=== PATIENT | male | born 1965 | race Caucasian/White ===

== ENCOUNTER 2023-01-15 11:57 | Outpatient (CLI) | payer OTHER, SELFPAY | END 2023-01-15 11:58 | disposition home or self-care (01) | PROVIDERS: Visit Provider Nurse Practitioner Family | DX: R30.0 Dysuria (principal) | CPT/HCPCS: 87086 ==

== ENCOUNTER 2023-03-07 12:20 | Emergency (ER) | payer OTHER, SELFPAY ==
[2023-03-07] VITALS (15 sets, daily range): BP systolic 112–154; BP diastolic 75–103; PULSE 61–74; RESP 12–20; TEMP 36.4; O2SAT 92–98; BMI 25.1
--- NOTE | 2023-03-07 | XR_ITS ---
Patient: MARISA ANGELES Facility:?[facility] Patient ID:?[id number] Site Patient ID:?[id number]. :?[id number] Study:?XRay-Chest PORTABLE-03/07/2023 1:17:48 PM Ordering Physician:KENNETH Final Report: INDICATION: Chest pain. TECHNIQUE: Chest 1 views. COMPARISON: None. FINDINGS: Cardiovasculature and mediastinum: Heart size and vasculature are normal in caliber and appearance. Lungs and pleural spaces: Lungs are clear. No sign of infiltrate or mass. No sign of pleural effusion. No pneumothorax. Bones and soft tissues: No significant findings. IMPRESSION: No acute or significant findings. Dictated by Obey Haas MD @ 03/07/2023 3:09:38 PM Signed by:?Obey Haas MD @03/07/2023 3:09:38 PM (Electronic Signature)
[2023-03-07] MEDS: ASPIRIN 81 MG TAB.CHEW 324 MG PO (12:44)
[2023-03-07] MEDS: NITROGLYCERIN 0.4 MG TAB.SUBL SUBLINGUAL (12:48)
[2023-03-07] MEDS: 0.9 % SODIUM CHLORIDE 500 ML 500 ML IV (12:48)
[2023-03-07] MEDS: TICAGRELOR 90 MG TABLET 180 MG PO (13:25)
[2023-03-07] MEDS: HEPARIN 5,000 UNIT/0.5 ML INJ 4000 UNIT IVP (13:34)
[2023-03-07] MEDS: HEPARIN 25,000 UNIT/500 ML BAG 19 UNIT IV (13:34)
[2023-03-07] MEDS: NITROGLYCERIN/DEXTROSE 25,000 MCG/250 ML BOTTLE 3 MCG IVPB (13:35)
[2023-03-07 13:44] LABS: D Dimer Quantitative* 0.33 ug/ml (0.00-0.50); INR 1.08 (0.91-1.10); Partial Thromboplastin Time* 33 Seconds (23-33); Prothrombin Time 14.6 Seconds
[2023-03-07 13:49] LABS: Alanine Aminotransferase* 20 U/L (4-50); Albumin* 4.3 g/dL (3.3-5.0); Anion Gap 8 mEq/L (7-15); Aspartate Amino Transferase* 29 U/L (12-35); Bilirubin Direct* 0.1 mg/dL (0.0-0.5); Bilirubin Total* 1.1 mg/dL (0.1-1.5); Blood Urea Nitrogen* 14 mg/dL (7-30); Calcium* 9.9 mg/dL (8.4-10.6); Carbon Dioxide* 28 mmol/L (20-32); Chloride* 101 mmol/L (96-114); Creatinine* 1.1 mg/dL (0.5-1.5); Estimated Glomerular Filt Rate 79 ml/min; Glucose* 108 mg/dL (60-115); Potassium* 4.2 mmol/L (3.6-5.1); Sodium* 137 mmol/L (135-149); Total Protein* 7.3 g/dL (6.0-8.3)
[2023-03-07 13:50] LABS: Alkaline Phosphatase* 44 U/L (40-150); Hemoglobin* 16.4 gm/dL (13.5-17.5); NT Pro B Type NatriureticPept* 30 pg/mL; Red Blood Count 5.49 m/uL (4.30-5.90); White Blood Count* 6.06 K/uL (4.50-11.00)
[2023-03-07 13:51] LABS: Eosinophils Percent Auto 0.8 % (0.0-7.0); Hematocrit 49.3 % (37.0-53.0); Immature Granulocytes Pct Auto 0.2 %; Lymphocytes Percent Auto 18.2 % (20-44); Mean Corpuscular HGB Conc 33 gm/dL (32-36); Mean Corpuscular Hemoglobin 30 pg (26-34); Mean Corpuscular Volume 90 fL (80-100); Monocytes Percent Auto 11.1 % (0.0-11.0); Neutrophils Percent Auto 68.7 % (42.0-72.0); Platelet Count* 228 K/uL (140-440); RDW Coefficient of Variation % 12.8 % (11.5-15.5); Slide Review Reflex No
--- NOTE | 2023-03-07 14:00 | ED.NURSE ---
Patient was transferred to [facility] via helicopter. Report was given to CHAVA Navarro with the helicopter. Also report given to Mehnaz on [facility]. Phone, shirt, shoes sent with patient. , Maegan, will meet patient there. Patient will go to CV lab on arrival to [facility]. Heparin gtt at 950u/kg/hr, nitro gtt at 5mcg/min. Loading dose of heparin 4000units given. ASA 324 and SL nitro given on arrival. [address]. Pain went from a 4/10 down to a 2/10 when handing off to aircraft crew. Patient was alert and oriented. Vital signs within normal limits. Last ate at 1030.
--- NOTE | 2023-03-07 14:19 | ED_ITS ---
HPI - General Adult General Date Seen: 03/07/23 Chief complaint: Chest Pain Stated complaint: chest pain Time Seen by Provider: 03/07/23 14:14 Source: patient Mode of arrival: ambulatory Limitations: no limitations History of Present Illness HPI narrative: Patient is a 57-year-old male who presents for evaluation of chest pain. He was hurrying to get in front of a train around 9:00 a.m. this morning and developed some central chest pain with radiation into his right arm and eventually into his jaw bilaterally. It eventually dissipated but then returned again while at rest. He says many many years ago he had pain that felt similar and was diagnosed as heartburn. This was probably 20 years ago. He says when it was it's worst it was bad enough that he can wanted to put his head down on the table, it is feeling little bit better now but not gone. He feels a little lightheaded, denies nausea vomiting, shortness of breath, fainting. He denies any history of exertional chest pain. He denies any medical history, does take testosterone. His dad had of quad bypass at age 55 approximately. He went on to live to age 88 but did have further cardiac complications. Patient does not smoke. Does not drink. Here today with his . Related Data Home Medications Medication Instructions Recorded Confirmed testosterone cypionate 200 mg/mL mg IM 01/15/23 01/15/23 intramuscular oil Allergies Allergy/AdvReac Type Severity Reaction Status Date / Time No Known Drug Allergies Allergy Verified 01/15/23 11:42 Review of Systems Status of ROS: Reports: 10 or more systems reviewed and unremarkable except as noted in History and below [facility] Medical History Dysuria ?R30.0 - Dysuria (ICD-10) Social History Smoking Status: Never smoker Do you use any of these nicotine containing products: None Second hand tobacco smoke exposure: No How often do you have a drink containing alcohol: monthly or less How many standard drinks containing alcohol do you have on a typical day: 1 or 2 AUDIT-C Alcohol total score: 1 Non-prescribed substance use: denies use service: No Exam Narrative: Exam Narrative: Vital signs as noted above. In general, an alert, well-appearing patient. Breathing easily. Head: Normocephalic, atraumatic. Eyes: Pupils are equal reactive. Extraocular movements are full. Conjunctivae are normal. ENT: Mucous membranes are moist. Neck: Supple without lymphadenopathy. Heart: Regular rate and rhythm. No murmur or rub. Lungs: Clear bilaterally. No increased work of breathing, crackles or wheezes. Abdomen: Soft and nontender. No organomegaly. Extremities: Well perfused. No edema. No calf tenderness. Pulses intact. Neurologic: Patient is alert and oriented to person and place. Speech is fluent. Face is symmetric. Moves all extremities equally. Affect: Normal. Skin: Warm and dry. Well perfused. Const: Vital Signs, click to edit/add: Vital Signs - 24 hr 03/07/23 12:28 03/07/23 12:30 03/07/23 12:30 Temperature 97.5 F L Pulse Rate [Pulse Oximeter] 68 Respiratory Rate 14 Blood Pressure [Ri ght Upper Arm] 154/103 H 154/103 H Pulse Oximetry 97 98 Oxygen Delivery Pr thod Room Air 03/07/23 12:49 03/07/23 12:55 03/07/23 13:00 Temperature Pulse Rate [Pulse Oximeter] 69 65 Respiratory Rate 12 20 Blood Pressure [Ri ght Upper Arm] 132/92 H 118/80 112/85 Pulse Oximetry 97 95 [facility] 03/07/23 13:05 03/07/23 13:10 03/07/23 13:15 Temperature Pulse Rate [Pulse Oximeter] 69 72 67 Respiratory Rate 12 14 18 Blood Pressure [Ri ght Upper Arm] 133/88 121/86 124/81 Pulse Oximetry 93 93 92 Oxygen Delivery Pr thod Room Air Room Air Room Air 03/07/23 13:20 03/07/23 13:25 03/07/23 13:30 Temperature Pulse Rate [Pulse Oximeter] 66 74 63 Respiratory Rate 12 12 12 Blood Pressure [Ri ght Upper Arm] 122/85 118/80 122/83 Pulse Oximetry 96 95 98 [facility] Room [facility] Room Air 03/07/23 13:35 03/07/23 13:40 03/07/23 13:45 Temperature Pulse Rate [Pulse Oximeter] 61 67 68 Respiratory Rate 12 16 12 Blood Pressure [Ri ght Upper Arm] 126/80 121/75 116/78 Pulse Oximetry 98 97 97 Oxygen Delivery Me thod Room Air Room Air Course Course Hospital Course: On arrival, patient was placed on monitor and oximetry. An initial EKG was done shortly after arrival and was given to me a few minutes later. His initial EKG showed a normal sinus rhythm with a ventricular rate of 66 beats per minute. The nurse believes this was done at 12:34 p.m.. The machine records that this was done at 11:24 a.m. but that is inaccurate. On initial EKG, there are no diagnostic ST elevations. There is about a mm of ST elevation in V5 and V6. There is 1-[address]-elevation in V4, and the T-waves in V4 5 and 6 are hyperacute. There may be some ST depression in lead 3 but there is also a fair amount of baseline waver so it is difficult to tell. Initially, I ordered aspi rin as well as sublingual nitro, and IV, and initial labs. I looked with the bedside ultrasound, he did appear to have hypokinesis of the anterior wall. A 2nd EKG was done about 20 minutes after the 1st EKG, and on this EKG there is ST elevation clearly seen in V2 as well as aVL, with inferior ST depression in leads 3 and F. At that time, I called a STEMI, ordered level 1 meds, including heparin bolus and drip, ticagrelor 180 mg, as well as morphine and nitroglycerin drip if needed for ongoing pain. I also had them give 500 mL of normal saline. I contacted [facility] . It did take a period of time to get hold of Cardiology, probably about 10 minutes altogether, and after getting approval from the global sales director I called for helicopter transport. Helicopter transport was delayed by I believe 25 minutes. Patient was stable while here. Blood pressure was initially 154/103, came down to 118/80 after nitroglycerin. His pain was significantly improved although not 100% gone at the time I last spoke with him. At that time he had not yet had morphine, but had had sublingual nitroglycerin. Initial troponin was 0.04. Other labs were pending at the time of his transfer. These returned fairly unremarkable. White blood cell count was 6, hemoglobin 16.4. Coags unremarkable. Metabolic panel, LFTs, BNP all normal. I did review his chest x-ray prior to giving heparin and his mediastinum was normal. Radiology has not read his chest x-ray. He was transported by air to [facility] without further complications. Critical care 30 minutes Vital Signs Vital signs: Initial Vital Signs Temperature 97.5 F L 03/07/23 12:28 Temperature Source Temporal Artery Scan 03/07/23 12:28 Pulse Rate 68 03/07/23 12:28 Pulse Rhythm Regular 03/07/23 12:28 Respiratory Rate 14 03/07/23 12:28 Blood Pressure 154/103 H 03/07/23 12:28 Blood Pressure Mean 120 H 03/07/23 12:28 Blood Pressure Position Sitting 03/07/23 12:28 Pulse Oximetry 97 03/07/23 12:28 Oxygen Delivery Method Room Air 03/07/23 12:28 Vital Signs Temperature 97.5 F L 03/07/23 12:28 Pulse Rate 68 03/07/23 12:28 Respiratory Rate 14 03/07/23 12:28 Blood Pressure 154/103 H 03/07/23 12:28 Pulse Oximetry 97 03/07/23 12:28 Oxygen Delivery Method Room Air 03/07/23 12:28 Temperature 97.5 F L 03/07/23 12:28 Pulse Rate 68 03/07/23 13:45 Respiratory Rate 12 03/07/23 13:45 Blood Pressure 116/78 03/07/23 13:45 Pulse Oximetry 97 03/07/23 13:45 Oxygen Delivery Method Room Air 03/07/23 13:45 Medical Decision Making Lab Data Labs: Lab Results 03/07/23 Range/Units 12:46 WBC 6.06 (4.50-11.00) K/uL RBC 5.49 (4.30-5.90) m/uL Hgb 16.4 (13.5-17.5) gm/dL Hct 49.3 (37.0-53.0) % MCV 90 (80-100) fL MCH 30 (26-34) pg MCHC 33 (32-36) gm/dL RDW Coeff of Rudy 12.8 (11.5-15.5) % Plt Count 228 (140-440) K/uL Neut % (Auto) 68.7 (42.0-72.0) % Lymph % (Auto) 18.2 L (20-44) % [place] % (Auto) 11.1 H (0.0-11.0) % Eos % (Auto) 0.8 (0.0-7.0) % Baso % (Auto) 1.0 (0.0-3.0) % Neut # (Auto) 4.20 (1.7-7.0) K/uL Lymph # (Auto) 1.10 (0.90-2.90) K/uL [place] # (Auto) 0.70 (0.00-0.90) K/UL Eos # (Auto) 0.00 (0.00-0.50) K/uL Baso # (Auto) 0.10 (0.00-0.30) K/uL Abs Immat Gran (auto) 0.00 (0.00-0.30) K/uL Imm/Tot Granulo (auto) 0.2 % INR 1.08 (0.91-1.10) APTT 33 (23-33) Seconds D-Dimer Quant (PE/DVT) 0.33 (0.00-0.50) ug/ml Sodium 137 (135-149) mmol/L Potassium 4.2 (3.6-5.1) mmol/L Chloride 101 (96-114) mmol/L Carbon Dioxide 28 (20-32) mmol/L Anion Gap 8 (7-15) mEq/L BUN 14 (7-30) mg/dL Creatinine 1.1 (0.5-1.5) mg/dL Estimated GFR 79 ml/min Glucose 108 (60-115) mg/dL Calcium 9.9 (8.4-10.6) mg/dL Total Bilirubin 1.1 (0.1-1.5) mg/dL Direct Bilirubin 0.1 (0.0-0.5) mg/dL AST 29 (12-35) U/L ALT 20 (4-50) U/L Alkaline Phosphatase 44 (40-150) U/L NT-Pro-B Natriuret Pep 30 pg/mL Total Protein 7.3 (6.0-8.3) g/dL Albumin 4.3 (3.3-5.0) g/dL Discharge Plan Discharge Prescriptions: No Action testosterone cypionate 200 mg/mL oil IM Follow Up/Referrals: Provider,Not a Local [Primary Care Provider] -
[2023-03-07 14:43] LABS: Troponin, Point-of-Care* 0.04 ng/ml (0.01-0.04)
== END 2023-03-07 14:15 | disposition short-term general hospital (02) ==
PROVIDERS: Emergency Provider Emergency Medicine
DX: I24.9 Acute ischemic heart disease, unspecified (principal)
CPT/HCPCS: 36415; 71045; 80048; 80076; 83880; 84484; 85025; 85379; 85610; 85730; 93005; 94761; 99285; 99291; A9270; J1644; J7120

== ENCOUNTER 2024-04-16 04:28 | Emergency (ER) | payer BC, SELFPAY ==
[2024-04-16 04:32] VITALS: BP 137/87; PULSE 66; RESP 16; TEMP 36.7; O2SAT 99; BMI 25.1
[2024-04-16 04:36] VITALS: O2SAT 99
--- NOTE | 2024-04-16 04:36 | CRLHL7_ITS ---
For Patients: As a result of the Century Cures Act, medical imaging exams and procedure reports are released immediately into your electronic medical record. You may view this report before your referring provider. If you have questions, please contact your health care provider. INDICATION: Chest pain COMPARISON: 03/07/2023 TECHNIQUE: PA and lateral 2 view chest. FINDINGS: Lung volumes are good. No focal or diffuse opacities. No pulmonary edema. No pleural effusion. No pneumothorax. No pneumomediastinum. Heart size is normal. Mediastinal surgical clips and abandoned epicardial pacing leads. Bones: Sternotomy wires are in good position at the midline. No acute appearing bone finding. IMPRESSION: Postoperative chest. Lungs clear without any acute findings. Dictated by Karma Carlson MD @ 04/16/2024 6:04:10 AM (Electronically Signed)
[2024-04-16 04:49] LABS: Basophils Absolute Auto 0.06 K/uL (0.00-0.30); Basophils Percent Auto 1.1 % (0.0-3.0); Eosinophils Absolute Auto 0.28 K/uL (0.00-0.50); Eosinophils Percent Auto 5.1 % (0.0-7.0); Hematocrit 47.8 % (37.0-53.0); Hemoglobin* 14.9 gm/dL (13.5-17.5); Immature Granulocytes Abs Auto 0.01 K/uL (0.00-0.30); Immature Granulocytes Pct Auto 0.2 %; Lymphocytes Absolute Auto 1.41 K/uL (0.90-2.90); Lymphocytes Percent Auto 25.5 % (20-44); Mean Corpuscular HGB Conc 31 gm/dL (32-36); Mean Corpuscular Hemoglobin 26 pg (26-34); Mean Corpuscular Volume 83 fL (80-100); Monocytes Percent Auto 14.5 % (0.0-11.0); Neutrophils Absolute Auto 2.96 K/uL (1.7-7.0); Neutrophils Percent Auto 53.6 % (42.0-72.0); Platelet Count* 220 K/uL (140-440); RDW Coefficient of Variation % 19.8 % (11.5-15.5); Red Blood Count 5.78 m/uL (4.30-5.90); White Blood Count* 5.52 K/uL (4.50-11.00)
[2024-04-16 04:50] LABS: Slide Review Reflex No
[2024-04-16] MEDS: ASPIRIN 81 MG TAB.CHEW 324 MG PO (04:55)
--- NOTE | 2024-04-16 04:57 | ED_ITS ---
HPI - Chest Pain General Date Seen: 04/16/24 Chief Complaint: Chest Pain Stated Complaint: chest pain Time Seen by Provider: 04/16/24 04:35 Source: patient Mode of arrival: ambulatory Limitations: no limitations History of Present Illness HPI narrative: Patient is a 58-year-old gentleman who presents here with left-sided chest discomfort with some radiation to his back, this is current on off for the past probably week to 10 days, and when he really exerts himself he noticed this the this occurs. He also says that when he stops exerting himself the discomfort goes away for the most part. He is not sure if this is more an anxiety he is noting, as last year he had what he describes as a heart attack and a triple bypass done at [facility]. Since then he has been fine he says. With no problems at all. Denies any significant shortness of breath leg swelling, he has been taking is aspirin faithfully, has never taken any nitroglycerin or any other medications is also on a statin, No history of hypertension, no history of diabetes, nonsmoker, the previous history of triple bypass at [facility]. complaint: chest discomfort Pertinent past history: coronary artery disease and CABG Onset (ago): week(s) Timing of current episode: episodic Prior episodes: Yes Onset: during exertion Pain location: substernal and left chest Pain radiation: right scapula Severity: moderate Quality: tightness, heaviness and similar to prior MD Relieving factors: rest Exacerbating factors: exertion Treatment prior to arrival: none Risk Factors Coronary artery disease risk factors: hyperlipidemia Thoracic aortic dissection risk factors: none Related Data Home Medications ?Medication ?Instructions ?Recorded ?Confirmed testosterone cypionate 200 mg/mL mg IM 01/15/23 01/15/23 intramuscular oil Previous Rx's ?Medication ?Instructions ?Recorded nitroglycerin 0.3 mg sublingual 0.3 mg sublingual Q5-15M PRN chest 04/16/24 tablet pain #20 tabs Allergies Allergy/AdvReac Type Severity Reaction Status Date / Time No Known Drug Allergies Allergy Verified 04/16/24 04:35 Review of Systems Status of ROS Reports: 10 or more systems reviewed and unremarkable except as noted in History and below [facility] Medical History Dysuria ?R30.0 - Dysuria (ICD-10) Social History Smoking Status: Never smoker Do you use any of these nicotine containing products: None Second hand tobacco smoke exposure: No How often do you have a drink containing alcohol: monthly or less How many standard drinks containing alcohol do you have on a typical day: 1 or 2 AUDIT-C Alcohol total score: 1 Non-prescribed substance use: denies use service: No Exam Narrative Exam Narrative: Patient is in room 3 he is in no apparent distress, speaking to me normally is currently chest pain-free. Pupils equal round reactive to light there is no scleral icterus redness is TMs are normal his oropharynx is normal, chest is clear bilaterally no wheezing crackles noted easy respirations heart sounds are normal no clicks murmurs or gallops scar from previous sternal surgeries noted well-healed, abdomen is soft there is no guarding no organomegaly bowel sounds are normal, normal pulses in his lower extremities no edema, moves all extremities independently and well. Skin reveals no rashes or petechiae neurologically intact in his upper lower extremities with cranial nerves 3-12 normal. Const Vital Signs, click to edit/add: Vital Signs - 24 hr 04/16/24 04:32 04/16/24 04:36 04/16/24 06:19 Temperature 98.0 F Pulse Rate [Right Pulse Oximeter] 66 53 L Respiratory Rate 16 16 Blood Pressure [Right Upper Arm] 137/87 113/78 Pulse Oximetry 99 99 99 Oxygen Delivery Method Room Air Room Air 04/16/24 08:12 Temperature Pulse Rate [Right Pulse Oximeter] 56 L Respiratory Rate 18 Blood Pressure [Right Upper Arm] 110/78 Pulse Oximetry 99 Oxygen Delivery Method Room Air Documenting provider has reviewed patient's vital signs: yes Course Reevaluation(s) Time of Reevaluation #1: 08:15 Reevaluation #1: Patient continues to be pain-free, EKG is repeated with absolutely no change from 2 previous EKGs, and his troponin now x3 is 0.01. This gives him a delta of 0. At this point will follow the guidelines that were laid out to us by cardiology at [facility] I will set him up for exercise Myoview for tomorrow. In the interim I have given her prescription for nitroglycerin, he will continue to take his aspirin. He was comfortable with this plan. Consultations Consultation #1: [facility], paged at 6:10 a.m. I spoke to cardiology at 6:40 a.m. he suggested a 3rd troponin, done 2 hours from then and repeating the EKG if these are also negative, then he would suggest an outpatient exercise Myoview, courses of the 3rd troponin is positive patient will need to be transferred. I then spoke to the patient, and he is in agreement. He continues to be pain-free at this point. Vital Signs Vital signs: Initial Vital Signs Temperature 98.0 F 04/16/24 04:32 Temperature Source Temporal Artery Scan 04/16/24 04:32 Pulse Rate 66 04/16/24 04:32 Pulse Rhythm Regular 04/16/24 04:32 Pulse Strength 3+ Normal 04/16/24 04:32 Respiratory Rate 16 04/16/24 04:32 Blood Pressure 137/87 04/16/24 04:32 Blood Pressure Mean 103 04/16/24 04:32 Blood Pressure Position Sitting 04/16/24 04:32 Pulse Oximetry 99 04/16/24 04:32 Oxygen Delivery Method Room Air 04/16/24 04:32 Vital Signs Temperature 98.0 F 04/16/24 04:32 Pulse Rate 66 04/16/24 04:32 Respiratory Rate 16 04/16/24 04:32 Blood Pressure 137/87 04/16/24 04:32 Pulse Oximetry 99 04/16/24 04:32 Oxygen Delivery Method Room Air 04/16/24 04:32 Temperature 98.0 F 04/16/24 04:32 Pulse Rate 56 L 04/16/24 08:12 Respiratory Rate 18 04/16/24 08:12 Blood Pressure 110/78 04/16/24 08:12 Pulse Oximetry 99 04/16/24 08:12 Oxygen Delivery Method Room Air 04/16/24 08:12 Medications Administered Medications: Discontinued Medications Generic Name Dose Route Start Last Admin Trade Name Freq PRN Reason Stop Dose Admin Aspirin 324 mg 04/16/24 04:50 04/16/24 04:55 Aspirin 81 Mg Tab.Chew PO 04/16/24 04:51 324 mg ONCE ONE Administration MDM - Chest Pain MDM Narrative Medical decision making narrative: During the evaluation of this patient I considered multiple differential diagnosis is. The life-threatening differential diagnosis include coronary disease/MD, pulmonary embolism, pneumothorax, pneumonia, and aortic dissection. Other differential diagnosis included but were not limited to pericarditis, myocarditis, chest wall pain, GERD, esophageal rupture, rib fracture contusion, pleurisy, as well as other etiologies. Medical Records Data Attestation: I reviewed the patient's medical records. Lab Data Attestation: I reviewed the patient's lab results. Labs: Lab Results 04/16/24 04/16/24 04/16/24 Range/Units 04:37 04:42 06:00 WBC 5.52 (4.50-11.00) K/uL RBC 5.78 (4.30-5.90) m/uL Hgb 14.9 (13.5-17.5) gm/dL Hct 47.8 (37.0-53.0) % MCV 83 (80-100) fL MCH 26 (26-34) pg MCHC 31 L (32-36) gm/dL RDW Coeff of Rudy 19.8 H (11.5-15.5) % Plt Count 220 (140-440) K/uL Neut % (Auto) 53.6 (42.0-72.0) % Lymph % (Auto) 25.5 (20-44) % [place] % (Auto) 14.5 H (0.0-11.0) % Eos % (Auto) 5.1 (0.0-7.0) % Baso % (Auto) 1.1 (0.0-3.0) % Neut # (Auto) 2.96 (1.7-7.0) K/uL Lymph # (Auto) 1.41 (0.90-2.90) K/uL [place] # (Auto) 0.80 (0.00-0.90) K/UL Eos # (Auto) 0.28 (0.00-0.50) K/uL Baso # (Auto) 0.06 (0.00-0.30) K/uL Abs Immat Gran (auto) 0.01 (0.00-0.30) K/uL Imm/Tot Granulo (auto) 0.2 % INR 1.06 (0.91-1.10) APTT 31 (23-33) Seconds D-Dimer Quant (PE/DVT) 0.13 (0.00-0.50) ug/ml Sodium 138 (135-149) mmol/L Potassium 4.0 (3.6-5.1) mmol/L Chloride 105 (96-114) mmol/L Carbon Dioxide 27 (20-32) mmol/L Anion Gap 6 L (7-15) mEq/L BUN 20 (7-30) mg/dL Creatinine 1.5 (0.5-1.5) mg/dL Estimated Creat Clear 54.99 Estimated GFR 54 ml/min Glucose 103 (60-115) mg/dL Calcium 8.7 (8.4-10.6) mg/dL NT-Pro-B Natriuret Pep 81 pg/mL POC Troponin I 0.01 0.01 (0.01-0.04) ng/ml Imaging Data Chest x-ray: Attestation: I have reviewed the pertinent imaging results. My impression: Negative chest with sternotomy wires Radiologist's impression: [place] [address] Diagnostic Imaging Report Patient: Jeovany Akhtar MR#: [id number] : 1965 Acct:[id number] Loc: ED Service Date: 04/16/[address]: Ordering Physician: Eulogio Ceron M.D. Date of Service: 04/16/24 Procedure(s): XR chest 2V Accession Number(s): [id number] cc: Eulogio Ceron M.D.; Dillon Romano M.D.~ For Patients: As a result of the Cures Act, medical imaging exams and procedure reports are released immediately into your electronic medical record. You may view this report before your referring provider. If you have questions, please contact your health care provider. INDICATION: Chest pain COMPARISON: 03/07/2023 TECHNIQUE: PA and lateral 2 view chest. FINDINGS: Lung volumes are good. No focal or diffuse opacities. No pulmonary edema. No pleural effusion. No pneumothorax. No pneumomediastinum. Heart size is normal. Mediastinal surgical clips and abandoned epicardial pacing leads. Bones: Sternotomy wires are in good position at the midline. No acute appearing bone finding. IMPRESSION: Postoperative chest. Lungs clear without any acute findings. Dictated by Karma Carlson MD @ 04/16/2024 6:04:10 AM (Electronically Signed) ECG Data Attestation: I personally reviewed and interpreted this ECG as follows: ECG interpretation date: 04/16/24 Prior ECG tracings: available for review Interpretation: EKG shows normal sinus rhythm, incomplete right bundle-branch block, no acute ST wave changes, normal indices. With a ventricular rate of 62. When compared to old EKG from 08/13/2007, hyperacute T-waves have resolved. 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 Continue with his aspirin, nitroglycerin if pain does not go way, call 911 and come back to the emergency room. No exercising, minimal activity. Will set him up for follow-up, with Cardiology, and primary care here. Activity Level: Light activity Prescriptions: New nitroglycerin 0.3 mg tablet, sublingual 0.3 mg sublingual Q5-15M PRN (Reason: chest pain) Qty: 20 1RF Rx Instructions: do not exceed 3 doses per episode No Action testosterone cypionate 200 mg/mL oil IM Follow Up/Referrals: Provider,Not a Local [Non-Staff] - 2 Days (Follow-up with Dr. Christiano Sutherland) Garcia Sutherland MD [Staff Physician] - Stand Alone Forms: [employer] Info Instructions
[2024-04-16 04:59] LABS: Troponin, Point-of-Care* 0.01 ng/ml (0.01-0.04)
[2024-04-16 05:03] LABS: Chloride* 105 mmol/L (96-114); Sodium* 138 mmol/L (135-149)
[2024-04-16 05:06] LABS: Anion Gap 6 mEq/L (7-15); Blood Urea Nitrogen* 20 mg/dL (7-30); Carbon Dioxide* 27 mmol/L (20-32); Creatinine* 1.5 mg/dL (0.5-1.5); Est. Creatinine Clearance* 54.99; Estimated Glomerular Filt Rate 54 ml/min; Glucose* 103 mg/dL (60-115)
[2024-04-16 05:07] LABS: Calcium* 8.7 mg/dL (8.4-10.6)
[2024-04-16 05:13] LABS: D Dimer Quantitative* 0.13 ug/ml (0.00-0.50)
[2024-04-16 05:14] LABS: INR 1.06 (0.91-1.10); Partial Thromboplastin Time* 31 Seconds (23-33); Prothrombin Time 14.5 Seconds
[2024-04-16 05:17] LABS: NT Pro B Type NatriureticPept* 81 pg/mL
--- OUTSIDE RECORDS SUMMARY | 2024-04-16 05:54 | XMS_ITS | Data Portability ---
Author Organization [facility], [facility] Address [address] [place] [address] Care Team Providers Care Turnaround Engineer Name Role Phone VOTEL, JUDITH Primary Care Provider Assessment No assessment recorded. Plan of Treatment Reminders Order Date Submit Date Provider Last Modified By Organization Details Last Modified Time Details Appointments None recorded. Lab PSA, total, serum or plasma 2022 023 [facility], [address] [place], [address], 3 12:35:34 testosteron e, total, serum 2022 023 [facility] [address] [place], [address], 3 08:35:54 hemoglobin (Hb), blood 2022 023 [facility], [address] [place], [address], 3 19:37:10 hepatic function panel, serum 2022 023 [facility], [address] [place], [address], 3 09:20:19 Referral None recorded. Procedures None recorded. Surgeries None recorded. Imaging MRI, prostate, w/wo contrast - contact patient to schedule 2022 023 [facility] [place], [address] [place], [address], 3 12:10:07 Medication Orders testosteron e cypionate 200 mg/mL intramuscul ar oil 2022 023 [id number], [address] [place], [place], [id number], 14:53:26 Patient TargetsNo targets recorded. Patient InstructionsNo instructions recorded. Reason for Referral None Reported. Results Created Date Observation Date Name Description Value Unit Range Abnormal Flag Note LastModifiedBy Organization Detail LastModifiedTime 04/16/2004/15/2023 MRI, prost ate, w/wo contr ast No observ ation record ed. [facility] [employer] [address] [place], [address], 04/18/2023 14:24:50 Result Notes None recorded. Problems Name Problem SNOMED Code Status Onset Date Resolution Date Notes Provider Name and Address Organization Details Recorded Time Prostate specific antigen above reference range 202598002 Active 2022 Mike Mathews MD [address] [place] [address],[address] [place] [address], [phone], [facility] 3 11:19:38 Hypogonadism 46690742 Active 2022 Mike Mathews MD [address] [place] [address],[address] [place] [address], [phone], [facility] 3 11:19:50 Primary erectile dysfunction 013516994 Active 2022 Mike Mathews MD [address] [place] [address],[address] [place] [address], [phone], [facility] 3 13:23:40 Male hypogonadism 84481414 Active 2022 Mike Mathews MD [address] [place] [address],[address] [place] [address], [phone], [facility] 3 10:53:44 Problem Notes None recorded. Procedures Surgical History Date Name Laterality Status Provider Name and Address Organization Details Recorded Time Colonoscopy completed Alison Phan [facility] 08/12/2022 10:41:12 Appendectomy completed Alison Phan [facility] 08/12/2022 10:41:02 Imaging Results Imaging Date Name Status LastModified by Organiz ation Details LastModified Time 04/15/2023 MRI, prostate, w/wo contrast completed [facility] [place] [address], [place], [address], 04/18/2023 14:24:50 Procedure Notes None recorded. Medical Equipment None Reported. Allergies No known drug allergies Medications Name Sig Start Date Stop Date Status Note LastModified by Organization Details LastModified Time atorvastati n 40 mg tablet active Not Available Not Available Not Available BD Luer-Kevin Syringe 3 mL 20 gauge x 1 USE DIRECTED active Not Available Not Available No t Available clopidogrel 75 mg tablet active Not Available Not Available Not Available Hypodermic [place] 23 gauge x 1 USE DIRECTED active Not Available Not Available No t Available hydromorpho ne 2 mg tablet 04/07 completed Not Available Not Available Not Available metoprolol succinate ER 25 mg tablet,exte nded release 24 hr active Not Available Not Available Not Available testosteron e cypionate 200 mg/mL intramuscul ar oil INJECT 1 ML IN THE MUSCLE EVERY 10 DAYS 2023 active Not Available Not Available Not Avai lable colchicine 0.6 mg tablet active Not Available Not Available Not Available doxycycline hyclate 100 mg tablet 04/07 completed Not Available Not Available Not Available BD Luer-Kevin Syringe 3 mL 21 gauge x 1 USE DIRECTED active Not Available Not Available No t Available testosteron e cypionate 200 mg/mL intramuscul ar kit Inject 1 mL by intramusc ular route. 2022 active Not Available Not Available Not Avai lable Vitals Date Recorded Body height Body mass index (BMI) Body weight Provider Name and Address Organization Details Last Updated DateTime 08/12/2022 175.26 cm 25.8 kg/m2 10901.66 g Alison Phan [facility] 08/12/2022 10:40:08 Date Recorded Body height Body mass index (BMI) Body weight Provider Name and Address Organization Details Last Updated DateTime 04/07/2023 175.26 cm 23.6 kg/m2 44309.78 g Chas Laird [facility] 04/07/2023 14:18:33 Social History Question Answer Notes LastModified by Organizat ion Details LastModified Time Tobacco Smoking Status [facility] 10:40:56 What Is Your Level Of Alcohol Consumption? Moderate Information not available 04/07/2023 What Is Your Level Of Caffeine Consumption? Moderate Information not available 04/07/2023 When Did You Quit Smoking? 16+yearssincel astcigardennis casarez Information not available 08/12/2022 What Was The Date Of Your Most Recent Tobacco Screening? 08/12/2022 leida Information not available 08/12/2022 Sex: Male Functional Status None recorded. Mental Status None recorded. Family History Relationship Description Onset Age of this Age Resolved Age Notes LastModified by Organization Details LastModified Time Mother Family history of breast cancer leida Not available 2022 10:40:32 Father Family history of cardiac disorder leida Not available 2022 10:40:37 Father Alzheimer's disease leida Not available 2022 10:40:48 Medical History Condition Response Diabetes N Sexually Transmitted Infection N Other N Bleeding Disorder N High Blood Pressure N Kidney Stones N Cancer N Lung Disease N Depression N High Cholesterol N GERD/Acid Reflux N Heart Disease N Immunizations Vaccine Type Date Status Provider Name and Address Organization Details Recorded Time Influenza, MDCK, quadrivalent, PF 05/01/2022 completed Ann magallon [facility] 05/20/2023 10:36:53 zoster recombinant 01/22/2019 completed Ann magallon [facility] 05/20/2023 10:36:53 zoster recombinant 04/09/2019 job magallon [facility] 05/20/2023 10:36:53 COVID-19, mRNA, LNP-S, PF, 30 mcg/0.3 mL dose 07/31/2021 completed Ann magallon [facility] 05/20/2023 10:36:53 COVID-19, mRNA, LNP-S, PF, 30 mcg/0.3 mL dose 10/21/2020 [facility] 10:36:53 COVID-19, mRNA, LNP-S, PF, 30 mcg/0.3 mL dose 11/11/2020 [facility] 10:36:53 COVID-19, mRNA, LNP-S, bivalent, PF, 50 mcg/0.5 mL or 25mcg/0.25 mL dose 04/23/2022 [facility] 10:36:53 Tdap 11/24/2017 [facility] 10:36:53 Tdap 04/30/2021 [facility] 10:36:53 Influenza, split virus, trivalent, preservative 04/27/2012 [facility] 10:36:53 Influenza, split virus, trivalent, preservative 04/27/2013 [facility] 10:36:53 Influenza, split virus, trivalent, preservative 05/06/2010 [facility] 10:36:53 Influenza, split virus, trivalent, preservative 05/09/2008 [facility]23 10:36:53 Influenza, split virus, trivalent, preservative 05/25/2003 [facility] 10:36:53 Influenza, split virus, trivalent, preservative 05/28/2006 [facility]23 10:36:53 Influenza, split virus, trivalent, preservative 05/29/2005 completed Ann Almejere null, [facility] 05/20/2023 10:36:53 Influenza, split virus, trivalent, preservative 05/31/2007 completed Ann Almejere null, [facility] 05/20/2023 10:36:53 Influenza, split virus, trivalent, PF 04/30/2011 completed [facility]jere null, [facility] 05/[facility]/2023 10:36:53 Influenza, split virus, trivalent, PF 06/25/2009 completed Ann Almejere null, [facility] 05/20/2023 10:36:53 Hep A, adult 04/27/2012 completed Ann Almejere null, [facility] 05/20/2023 10:36:53 Hep A, adult 04/30/2011 completed Ann Almejere null, [facility] 05/20/2023 10:36:53 Influenza, split virus, quadrivalent, PF 04/08/2020 completed Ann Almejere null, [facility] 05/20/2023 10:36:53 Influenza, split virus, quadrivalent, PF 04/13/2014 completed Ann Almejere null, [facility] 05/20/2023 10:36:53 Influenza, split virus, quadrivalent, PF 04/18/2017 completed Ann Almejere null, [facility] 05/[facility]/2023 10:36:53 Influenza, split virus, quadrivalent, PF 04/25/2015 completed Ann Almejere null, [facility] 05/20/2023 10:36:53 Influenza, split virus, quadrivalent, PF 04/27/2019 completed Ann Almejere null, [facility] 05/[facility]/2023 10:36:53 Influenza, split virus, quadrivalent, PF 04/29/2016 completed Ann Almejere null, [facility] 05/20/2023 10:36:53 Influenza, split virus, quadrivalent, PF 04/30/2021 completed [facility]mejere null, [facility] 05/[facility]/2023 10:36:53 Influenza, split virus, quadrivalent, PF 05/06/2018 completed Ann JovanabreanaMIGUEL gama [facility] 05/20/2023 10:36:53 Past Encounters Encounter ID Performer Location Encounter Start Date Encounter Closed Date Diagnosis/Indication Diagnosis SNOMED-CT Code Diagnosis ICD10 Code [id number] Mike Mathews MD [facility] [address] [place] [address] 08/12/2022 10:31:27 08/16/2022 15:24:50 Prostate specific antigen above reference range 582311735 R97.20 Hypogonadism 89721261 E2 9.1 Primary er ectile dysfunction 207502799 N52.9 [id number] Mike Mathews MD [facility] [address] [place] [address] 04/07/2023 14:13:42 04/11/2023 18:35:51 Prostate specific antigen above reference range 426760282 R97.20 Male hypogonadism 187770 06 E29.1 Health Concerns Section Related Observation LastModified by Organization Detai ls LastModified Time None Recorded Concern Status LastModified by Organization Details LastModified Time None Recorded Advance Directives Directive None Recorded Payers Encounter Date Sequence Insurance Name Policy Number Policy Verde Covered Member ID Verde Member ID Guarantor Name 08/12/2022 1 [id number] Jeovany Akhtar 04/07/2023 1 [facility] Jeovany Akhtar [id number] Jeovany Akhtar 04/07/2023 2 [facility] Jeovany Akhtar [id number] Jeovany Akhtar Notes Date Note Type Note Provider Name and Address Organization Details Recorded Time 08/12/2022 text/html HPI Notes: New patient referred for history of hypogonadism, erectile dysfunction and elevated PSA. I reviewed the primary care notes from Dr. Romano dated 11/25/2021. The patient has been on long-term testosterone cypionate injections 200 mg every 10 days. This goes back to at least [address] he last saw Dr. Farah. There are no recent urology notes. I reviewed the [facility] records and he had an elevated hemoglobin of 18.0 on 11/25/2021 and his testosterone level was 1131. There is no recent liver panel in the [facility] system. His PSA was also elevated to 4.15 on 11/25/2021, up from 3.51 in 2020 and 2.66 in 2019. No family history of prostate cancer. He denies any urinary symptoms. He states that the testosterone has been very helpful with his vitality, mood, libido and sexual function. He also takes sildenafil 25 mg for ED with good results. Mike Mathews MD [address] [place] [address],[address], [place], [address], [facility] 08/12/2022 13:24:00 04/07/2023 text/html HPI Notes: 3: New patient referred for history of hypogonadism, erectile dysfunction and elevated PSA. I reviewed the primary care notes from Dr. Romano dated 11/25/2021. The patient has been on long-term testosterone cypionate injections 200 mg every 10 days. This goes back to at least 2009 [address] he last saw Dr. Farah. There are no recent urology notes. I reviewed the [facility] records and he had an elevated hemoglobin of 18.0 on 11/25/2021 and his testosterone level was 1131. There is no recent liver panel in the [facility] system. His PSA was also elevated to 4.15 on 11/25/2021, up from 3.51 in 2020 and 2.66 in 2019. No family history of prostate cancer. He denies any urinary symptoms. He states that the testosterone has been very helpful with his vitality, mood, libido and sexual function. He also takes sildenafil 25 mg for ED with good results. 04/07/23: He was referred back for elevated PSA of 4.45 on 03/17/2023. Remaining labs including total testosterone, LFTs and hemoglobin within normal range. He is currently injecting 100 mg of testosterone cypionate every 7 days. He underwent three-vessel coronary artery bypass about 1 month ago at [place] and is recovering. He tried Viagra 25 mg once and fainted and is stopped this. He is currently on aspirin and Plavix. Mike Mathews MD [address] [place] [address],[address], [place], [address], [facility] 04/07/2023 15:02:58
--- OUTSIDE RECORDS SUMMARY | 2024-04-16 05:55 | XMS_ITS | Clinical Summary ---
Author Organization [facility] Address [place], [place] [address] Care Team Providers Care Pullman Car Clerk Name Role Phone JavierteDillon carlson MD Primary Care Provider + Allergies No known active allergies Medications Medication Sig Dispensed Refills Start Date End Date Status sildenafil citrate (VIAGRA) 100 mg tabletIndications :Erectile dysfunction of organic origin Take 1 Tablet (100 mg) by mouth once daily if needed for Erectile Dysfunction. Take 30 to 60 minutes prior to sexual activity. Maximum 100 mg in 24 hours. 48 tablet. 5 2 Active B-D 3cc Luer-Kevin Syr 20Gx1 3 mL 20 gauge x 1 syrgIndications:L ow testosterone USE DIRECTED 100 Each 4 3 Active cholecalciferol (VITAMIN D3) 1,000 unit tablet Take 1,000 units by mouth once daily. Active Biotin 1 mg tablet Take 1 mg by mouth once daily. Active vitamin B complex (B COMPLETE ORAL) Take 1 Tablet by mouth once daily. Active L.acid/L.casei/B. bif/B.umberto/FOS (PROBIOTIC BLEND ORAL) Take 1 Capsule by mouth once daily. Active acetaminophen (TYLENOL EXTRA STRGTH) 500 mg tabletIndications :S/P CABG x 3 Take 2 Tablets (1,000 mg) by mouth four times daily. Max acetaminophen dose: 4000mg in 24 hrs. 0 3 Active aspirin (ECOTRIN) 81 mg enteric coated tabletIndications :S/P CABG x 3 Take 1 Tablet (81 mg) by mouth once daily with a meal. 0 3 Active Needle, Disp, 23 G 23 gauge x 1 ndleIndications:L ow testosterone As directed. 100 Each 4 3 Active Syringe with Needle, Disp, (Couplewise Luer Lock Syr-needle) 3 mL 21 gauge x 1 syrgIndications:L ow testosterone As directed. 100 Each 3 3 Active polyethylene glycol-electrolyt e (GOLYTELY) 236-22.74-6.74 -5.86 gram suspensionIndicat ions:Colon cancer screening Drink 2 liters (1/2) the day before colonoscopy and drink 2 liters (other 1/2) 6 hours before colonoscopy appointment. 4000 mL 3 Active atorvastatin (LIPITOR) 40 mg tabletIndications :S/P CABG x 3 Take 1 Tablet (40 mg) by mouth at bedtime. 90 Tablet 3 3 Active clopidogreL (PLAVIX) 75 mg tabletIndications :S/P CABG x 3 Take 1 Tablet (75 mg) by mouth every morning. 90 Tablet 3 3 Active testosterone cypionate (DEPO-TESTOSTERON E) 200 mg/mL injectionIndicati ons:Hypogonadism male INJECT 1 ML IN THE MUSCLE EVERY 10 DAYS 10 mL 4 Active metoprolol succinate (TOPROL XL) 25 mg Sustained-Release tabletIndications :S/P CABG x 3 TAKE 1 AND 1/2 TABLETS(37.5 MG) BY MOUTH DAILY 135 Tablet 4 Active metoprolol succinate (TOPROL XL) 25 mg Sustained-Release tabletIndications :S/P CABG x 3 Take 1.5 Tablets (37.5 mg) by mouth once daily. 135 Tablet 4 04/03/20 24 Discontinued Active Problems Problem Noted Date Diagnosed Date ST elevation myocardial infa rction involving left anterior descending (LAD) coronary artery 03/07/2023 S/P CABG x 3 03/07/2023 Overview (03/07/2023): SANTIAGO TO LAD, SVG TO DIAGONAL, SVG TO PDA ON 03/07/[address] ESPAÑA Adenomatous colon polyp 07/30/2019 Overview (06/21/2023): Colonoscopy 07/2019 polyps, repeat in 3 years Colonoscopy 06/2023 TA, repeat in 5 years Hypogonadism male 12/28/2016 Low testosterone 04/15/2011 Blood glucose elevated 12/01/2010 Encounters Date Type Department Care Team Description 04/01/2024 Refill [facility] [address] [place] [address] Dillon Romano MD Refill Request (Metoprolol Succinate) from Last 3 Months Immunizations Name Administration Dates Next Due AMB Influenza, IIV3 (Age >=3 years)(Flu Clinic Only) 04/27/2013,05/06/2010,05/09/2008 AMB Influenza, IIV4 PF (=>6 mos Flulaval,Fluzone Fluarix)(Flu Clinic Only) 04/27/2019,05/06/2018,04/18/2017,2015,04/13/2014 Hepatitis A (Adult) 04/27/2012,04/30/2011 Influenza A (H1N1), Inactiva yesenia (Age >=3 Years) 06/25/2009 Influenza, IIV3 (Age 6-35 mos) 04/30/2011,2008 Influenza, IIV3 (Age >=3 years) 04/27/20 13,04/27/2012,04/30/2011,2009,06/25/2009,05/09/2008,05/31/2007,1 07/28/2005,05/29/2005,05/25/2003 Influenza, IIV4 05/06/2023,,04/08/2020,2016,04/29/2016,04/25/2015,04/13/2014 Influenza,CCIIV4 PRESERV FREE 05/01/2022 Tdap 04/30/2021,11/24/2017,07/12/2008 Zoster (Shingrix-RZV, recombinant) 04/09/2019, Family History Medical History Relation Name Comments Good Health Brother Good Health Daughter ADOPTED Heart Disease Father [place] age 50, henry druple bypass 1988 Other Father elevated iron Good Health Mother Good Health Sister Good Health Son 1 Good Health Son 2 ADOPTED Relation Name Status Comments Brother Daughter Father Alive Mother Alive Sister Son 1 Son 2 Social History Tobacco Use Types Packs/Day Years Used Date Smoking Tobacco: Former Cigarettes 0.3 5 Smokeless Tobacco: Never Tobacco Cessation:Counseling Given: Yes Comments:smoked lightly for two years in college Alcohol Use Standard Drinks/Week Comments Yes 0 (1 standard drink = 0.6 oz pur e alcohol) 3 beers on weekend PHQ-2 Answer Date Recorded PHQ-2 TOTAL SCORE 0 06/28/2023 Social Connections Answer Date Recorded Frequency of Communication with Friends and Fami ly Not on file 02/09/2024 Financial Resource Strain Answer Date R ecorded Difficulty of Paying Living Expenses 3 01/18/2023 Difficulty of Paying Living Expenses Not on file 01/18/2023 Food Insecurity Answer Date Recorded Worried About Running Out of Food in the Last Ye ar 1 01/18/2023 Transportation Needs Answer Date Record ed Lack of Transportation (Medical) 1 01/18/2023 Housing Stability Answer Date Recorded Unable to Pay for Housing in the Last Year 1 01/18/2023 Sex and Gender Information Value Date Recorded Sex Assigned at Not on file Gender Identity Not on file Sexual Orientation Not on file Obstetrics History Last Filed Vital Signs Vital Sign Reading Time Taken Comments Blood Pressure 112/58 06/17/2023 9:53 AM WIPING RAG WASHER Pulse 70 06/17/2023 9:53 AM WIPING RAG WASHER Temperature 36.8 ??C (98.3 ??F) 03/17/2023 3:00 PM CD T Respiratory Rate 12 06/17/2023 9:53 AM WIPING RAG WASHER Oxygen Saturation 97% 06/17/2023 9:53 AM WIPING RAG WASHER Inhaled Oxygen Concentration - - Weight 81.3 kg (179 lb 3.2 oz) 05/19/2023 10:02 AM WIPING RAG WASHER Height 175.3 cm (5' 9) 05/19/2023 10:02 AM WIPING RAG WASHER Body Mass Index 26.46 05/19/2023 10:02 AM WIPING RAG WASHER Plan of Treatment Health Maintenance Due Date Last Done Comments HIV for age 15-65 11/16/1982 COVID-19 vaccine series ( season) 2024 04/23/2022, 07/31/2021, 11/11/2020, Additional history exists Influenza for age 50-64 03/11/2024 05/06/20 23, 05/01/2022, 04/30/2021, Additional history exists BMI (ht and wt on same day) for age 18+ 05/19/2024 05/19/2023, 03/17/2023, 01/18/2023, Additional history exists Depression screening for age 12+ 06/27/2024 06/27/2023, 04/04/2023, 03/31/2023, Additional history exists Lipids for age 45-75 05/16/2028 05/16/2023, 03/09/2023, 11/25/2021, Additional history exists Colonoscopy through age 75 06/17/202806/17, 06/17/2023, 06/17/2023, Additional history exists Tetanus booster 04/30/2031 04/30/2021, 11/08, 07/12/2008 Hepatitis C screening for age 18-79 Completed 11/24/2017 Zoster (shingles) series for age 50+ Completed 04/09/2019, 01/22/2019 Tdap Completed 04/30/2021, 11/08, 07/12/2008 Pneumococcal series for age 6-64 Aged Out No longer eligible based on patient's age to complete this topic Medical Devices Explanted Type Area Heading Maker Device Identifier Shelf Expiration Date Model / Serial / Lot Cnnla Arterial 22frx3/8in Optisite Blunt Tip - [id number] Explanted:Qty: 1 on 03/07/2023 [email or web address] [place] 02/13/2025 OPTI22 / / Description:THIS IS NOT AN I MPLANT Procedures Procedure Name Priority Date/Time Associated Diagnosis Comments COLONOSCOPY SCREENING Routine 06/17/2023 8:37 AM WIPING RAG WASHER History of colon polyps LIPID PANEL W REFLEX MEASURED LDL Routine 05/16/2023 7:[address] elevation myocardial infarction involving left anterior descending (LAD) coronary artery (HC) ANTI HCV Routine 11/24/2017 8:50 AM CDT Encounter for hepatitis C screening test for low risk patient from Last 3 Months or Most Recently Relevant to Health Maintenance Results * COLONOSCOPY (06/17/2023 9:09 AM WIPING RAG WASHER) 06/17/2023 9:09 AM WIPING RAG WASHER Narrative Transcriptions Lino Armijo MD - 06/17/2023 9:43 AM CST Patient Name: Jeovany Akhtar Procedure Date: 06/17/2023 Gender: Male Date of : 1965 Admit Type: Outpatient Procedure: Colonoscopy Proceduralist: Lino Armijo MD , Kelsey Murphy (Nurse), Mimi Watts (Nurse) Referring MD: Dillon Romano Indications/Pre-Op Diagnosis: High risk colon cancer surveillance:Personal history of multiple (3 or more) adenomas,Last colonoscopy: July 2019 Medications: Fentanyl 100 micrograms IV, Midazolam 4 mgIV, The level of sedation administered wasmoderate Procedure Description: The patient had risks, benefits and alternatives explained to andgave informed consent. The patient had a stable cardiopulmonary status and judged an adequate candidate for conscious sedation. The [id number] was passed through the anus and advanced to the cecum, identified by appendiceal orifice and ileocecal valve. Thecolonoscopy was performed without difficulty. The patient tolerated the procedure well. The quality of the bowel preparation was good. The ileocecal valve, appendiceal orifice, and rectum were photographed. Complications: No immediate complications. Estimated Blood Loss & Specimen: Estimated blood loss: none. Specimen collected - Yes and sent to Laboratory Findings: The perianal and digital rectal examinations were normal. A 3 mm polyp was found in the sigmoid colon. The polyp was sessile.The polyp was removed with a cold snare. Resection and retrieval were complete. The exam was otherwise without abnormality. Impressions/Post-Op Diagnosis: - One 3 mm polyp in the sigmoid colon, removed with a cold snare. Resected and retrieved. - The examination was otherwise normal. Recommendation: - Patient has a contact number available for emergencies. The signsand symptoms of potential delayed complications were discussed with the patient. Return to normal activities tomorrow. Written discharge instructions were provided to the patient. - Resume previous diet. - Continue present medications. - Await pathology results. - Repeat colonoscopy is recommended. The colonoscopy date will be determined after pathology results from today's exam become available for review. Moderate Sedation: A time out was performed before the procedure. Moderate (conscious) sedation was administered by the endoscopy nurse and supervised bythe endoscopist. The following parameters were monitored: oxygensaturation, heart rate, blood pressure, EKG, CO2, respiratory rate, adequacy of pulmonary ventilation and reponse to care. Please refer to the patient's medical record flowsheets and nursing notes for moderate sedation details. Total physician intraservice time was 21 minutes. Lino Armijo MD 06/17/2023 9:43:21 AM This report has been signed electronically. Note Initiated On: 06/17/2023 9:09 AM Procedure Code(s): --- Professional --- 56098, Colonoscopy, flexible; with removalof tumor(s), polyp(s), or other lesion(s) bysnare technique Diagnosis Code(s): --- Professional --- Z86.010, Personal history of colonicpolyps D12.5, Benign neoplasm of sigmoid colon CPT copyright 2021 [employer]. All rights reserved. The codes documented in this report are preliminary and upon club room attendant reviewmay be revised to meet current compliance requirements. Scope In: 9:17:37 AM Scope Withdrawal Time 0 hours 11 minutes 57 seconds Scope Out: 9:35:00 AM Lino Armijo MD PROCEDURE ORD * LIPID PANEL W REFLEX MEASURED LDL (05/16/2023 7:58 AM WIPING RAG WASHER) CHOLESTEROL,TOTAL 113 100 - 199 mg/dL 05/16/2023 1:27 PM WIPING RAG WASHER [facility] TRA [facility] Comment: Cholesterol, Total Reference Ranges Desirable <200 mg/dL Borderline 200-239 mg/dL High >=240 mg/dL TRIGLYCERIDES 54 <150 mg/dL 05/16/2023 1:27 PM WIPING RAG WASHER [facility] TRAL [facility] HDL CHOLESTEROL 44 >40 mg/dL 1:27 PM WIPING RAG WASHER [facility] TRAL [facility] NON-HDL CHOLESTEROL 69 <145 mg/dl 05/16/2023 1:27 PM WIPING RAG WASHER [facility] CHOL/HDL RATIO 2.57 <4.50 05/16/2023 1:27 PM WIPING RAG WASHER [facility] LDL CHOLESTEROL 58 <=130 mg/dL 05/16/2023 1:27 PM WIPING RAG WASHER [facility] VLDL CHOLESTEROL 11 <=30 mg/dL 05/16/2023 1:27 PM WIPING RAG WASHER [facility] TRAL [facility] PROVIDER ORDERED STATUS RANDOM 05/16/2023 1:27 PM [facility] Blood BLOOD SPECIMEN / Unknown Venipuncture / Unknown 05/16/2023 7:58 AM WIPING RAG WASHER 05/16/2023 7:59 AM WIPING RAG WASHER Dillon Romano MD CHEMISTRY [facility] [address] [place] [address], * ANTI HCV (11/24/2017 8:50 AM CDT) HEPATITIS C ANTIBODY Non-React frank Non-React frank 11/24/2017 5:26 PM CDT [facility] Comment:Antibodies to HCV no t detected; does not exclude the possibility of exposure to HCV. Blood BLOOD SPECIMEN / Unknown Venipuncture / Unknown 11/24/2017 8:50 AM CDT 11/24/2017 8:50 AM CDT Dillon Romano MD [facility] [address] [place] [address], from Last 3 Months or Most Recently Relevant to Health Maintenance Advance Directives * Full Code (Latest Code Status on File) Date Activated Date Inactivated Comments 03/10/2023 7:33 AM 03/12/2023 4:28 PM Question Answer Comments Code Status Discussion: Reviewed Preferences * Full Code Date Activated Date Inactivated Comments 03/07/2023 3:15 PM 03/10/2023 7:33 AM Question Answer Comments Code Status Discussion: Unable to Assess Preferences, Provider to review later Care Teams Pullman Car Clerk Relationship Specialty Start Date End Date Votel, Dillon Holcomb MD [address] [place] [address] PCP - General Family Practice 12/10/10
[2024-04-16 06:08] LABS: Troponin, Point-of-Care* 0.01 ng/ml (0.01-0.04)
[2024-04-16 06:19] VITALS: BP 113/78; PULSE 53; RESP 16; O2SAT 99
[2024-04-16 08:12] VITALS: BP 110/78; PULSE 56; RESP 18; O2SAT 99
[2024-04-16 08:16] LABS: Troponin, Point-of-Care* 0.01 ng/ml (0.01-0.04)
== END 2024-04-16 08:30 | disposition home or self-care (01) ==
PROVIDERS: Emergency Provider Family Medicine; PCP Family Medicine
DX: R07.9 Chest pain, unspecified (principal); I20.9 Angina pectoris, unspecified
CPT/HCPCS: 36415; 71046; 80048; 83880; 84484; 85025; 85379; 85610; 85730; 93005; 94761; 99284; 99285; A9270

== ENCOUNTER 2024-04-17 10:45 | Outpatient (CLI) | payer BC, SELFPAY ==
--- OUTSIDE RECORDS SUMMARY | 2024-04-17 11:40 | XMS_ITS | Data Portability ---
Author Organization [facility], [facility] Address [address] [place] [address] Care Team Providers Care Brick Grader Name Role Phone VOTEL, JUDITH Primary Care Provider Assessment No assessment recorded. Plan of Treatment Reminders Order Date Submit Date Provider Last Modified By Organization Details Last Modified Time Details Appointments None recorded. Lab PSA, total, serum or plasma 2022 023 [facility], [address] [place], [address], 3 12:35:34 testosteron e, total, serum 2022 023 [facility] [address] [place], [address], 3 08:35:54 hemoglobin (Hb), blood 2022 023 [facility], [address] [place], [address], 3 19:37:10 hepatic function panel, serum 2022 023 [facility], [address] [place], [address], 3 09:20:19 Referral None recorded. Procedures None recorded. Surgeries None recorded. Imaging MRI, prostate, w/wo contrast - contact patient to schedule 2022 023 [facility] [place], [address] [place], [address], 3 12:10:07 Medication Orders testosteron e cypionate 200 mg/mL intramuscul ar oil 2022 023 [id number], [address] [place], [id number], 14:53:26 Patient TargetsNo targets recorded. Patient InstructionsNo instructions recorded. Reason for Referral None Reported. Results Created Date Observation Date Name Description Value Unit Range Abnormal Flag Note LastModifiedBy Organization Detail LastModifiedTime 04/16/2004/15/2023 MRI, prost ate, w/wo contr ast No observ ation record ed. [facility] [place] [address] [place], [address], 04/18/2023 14:24:50 Result Notes None recorded. Problems Name Problem SNOMED Code Status Onset Date Resolution Date Notes Provider Name and Address Organization Details Recorded Time Prostate specific antigen above reference range 111817118 Active 2022 Mike Mathews MD [address] [place] [address],[address] [place] [address], [phone], [facility] 3 11:19:38 Hypogonadism 36017903 Active 2022 Mike Mathews MD [address] [place] [address],[address] [place] [address], [phone], [facility] 3 11:19:50 Primary erectile dysfunction 227504782 Active 2022 Mike Mathews MD [address] [place] [address],[address] [place] [address], [phone], [facility] 3 13:23:40 Male hypogonadism 40192942 Active 2022 Mike Mathews MD [address] [place] [address],[address] [place] [address], [phone], [facility] 3 10:53:44 Problem Notes None recorded. Procedures Surgical History Date Name Laterality Status Provider Name and Address Organization Details Recorded Time Colonoscopy completed Alison Phan [facility] 08/12/2022 10:41:12 Appendectomy completed Alison Phan [facility] 08/12/2022 10:41:02 Imaging Results Imaging Date Name Status LastModified by Organiz ation Details LastModified Time 04/15/2023 MRI, prostate, w/wo contrast completed [facility] [place] [address], [place], [address], 04/18/2023 14:24:50 Procedure Notes None recorded. Medical [...] Not Available Not Available Not Available Hypodermic [place] 23 gauge x 1 USE DIRECTED active [...] Updated DateTime 08/12/2022 175.26 cm 25.8 kg/m2 79693.66 g Alison Phan [facility] 08/12/2022 10:40:08 Date Recorded Body height Body mass index (BMI) Body weight Provider Name and Address Organization Details Last Updated DateTime 04/07/2023 175.26 cm 23.6 kg/m2 48931.78 g Chas Laird [facility] 04/07/2023 14:18:33 Social History Question Answer Notes LastModified by Organizat ion Details LastModified Time Tobacco Smoking Status [facility]/12/2022 10:40:56 What Is Your Level [...] High Blood Pressure N Kidney Stones N High Cholesterol N GERD/Acid Reflux N Heart Disease N Cancer N Lung Disease N Depression N Immunizations Vaccine Type Date Status Provider Name and Address Organization Details Recorded Time Influenza, MDCK, quadrivalent, PF 05/01/2022 completed Ann magallon [facility] 05/20/2023 10:36:53 zoster recombinant 01/22/2019 completed Ann magallon [facility] 05/20/2023 10:36:53 zoster recombinant 04/09/2019 job magallon [facility] 05/20/2023 10:36:53 COVID-19, mRNA, LNP-S, PF, 30 mcg/0.3 mL dose 07/31/2021 completed Ann magallon [facility] 05/20/2023 10:36:53 COVID-19, mRNA, LNP-S, PF, 30 mcg/0.3 mL dose 10/21/2020 [facility] 10:36:53 COVID-19, mRNA, LNP-S, PF, 30 mcg/0.3 mL dose 11/11/2020 [facility]2023 10:36:53 COVID-19, mRNA, LNP-S, bivalent, PF, 50 mcg/0.5 mL or 25mcg/0.25 mL dose 04/23/2022 [facility]2023 10:36:53 Tdap 11/24/2017 [facility]2023 10:36:53 Tdap 04/30/2021 [facility]2023 10:36:53 Influenza, split virus, trivalent, preservative 04/27/2012 [facility]2023 10:36:53 Influenza, split virus, trivalent, preservative 04/27/2013 [facility]23 10:36:53 Influenza, split virus, trivalent, preservative 05/06/2010 [facility] 10:36:53 Influenza, split virus, trivalent, preservative 05/09/2008 [facility]/2023 10:36:53 Influenza, split virus, trivalent, preservative 05/25/2003 [facility]2023 10:36:53 Influenza, split virus, trivalent, preservative 05/28/2006 [facility]/2023 10:36:53 Influenza, split virus, trivalent, preservative 05/29/2005 completed Ann Almejere null, [facility] 05/20/2023 10:36:53 Influenza, split virus, trivalent, preservative 05/31/2007 completed Ann Almejere null, [facility] 05/20/2023 10:36:53 Influenza, split virus, trivalent, PF 04/30/2011 completed Ann Almejere null, [facility] 05/20/2023 10:36:53 Influenza, split virus, trivalent, PF 06/25/2009 completed Ann Almejere null, [facility] 05/20/2023 10:36:53 Hep A, adult 04/27/2012 completed Ann Almejere null, [facility] 05/20/2023 10:36:53 Hep A, adult 04/30/2011 completed Ann Almejere null, [facility] 05/20/2023 10:36:53 Influenza, split virus, quadrivalent, PF 04/08/2020 completed Ann Almejere null, [facility] 05/20/2023 10:36:53 Influenza, split virus, quadrivalent, PF 04/13/2014 completed Ann Almejere null, [facility] 05/20/2023 10:36:53 Influenza, split virus, quadrivalent, PF 04/18/2017 completed Ann Almejere null, [facility] 05/20/2023 10:36:53 Influenza, split virus, quadrivalent, PF 04/25/2015 completed Ann Almejere null, [facility] 05/20/2023 10:36:53 Influenza, split virus, quadrivalent, PF 04/27/2019 completed Ann Almejere null, [facility] 05/20/2023 10:36:53 Influenza, split virus, quadrivalent, PF 04/29/2016 completed Ann Almejere null, [facility] 05/20/2023 10:36:53 Influenza, split virus, quadrivalent, PF 04/30/2021 completed Ann Almejere null, [facility] 05/20/2023 10:36:53 Influenza, split virus, quadrivalent, PF 05/06/2018 completed Ann Jovan[facility]reanaMIGUEL [facility] 05/20/2023 10:36:53 Past Encounters Encounter ID Performer Location Encounter Start Date Encounter Closed Date Diagnosis/Indication Diagnosis SNOMED-CT Code Diagnosis ICD10 Code [id number] Mike Mathews MD [facility] [address] [place] [address] 08/12/2022 10:31:27 08/16/2022 15:24:50 Prostate specific antigen above reference range 822813241 R97.20 Hypogonadism 84613473 E2 9.1 Primary er ectile dysfunction 168683541 N52.9 [id number] Mike Mathews MD [facility] [address] [place] [address] 04/07/2023 14:13:42 04/11/2023 18:35:51 Prostate specific antigen above reference range 721286468 R97.20 Male hypogonadism 129929 06 E29.1 Health Concerns Section Related Observation LastModified by Organization Detai ls LastModified Time None Recorded Concern Status LastModified by Organization Details LastModified Time None Recorded Advance Directives Directive None Recorded Payers Encounter Date Sequence Insurance Name Policy Number Policy Verde Covered Member ID Verde Member ID Guarantor Name 08/12/2022 1 [facility] [id number] Jeovany Akhtar 04/07/2023 1 [facility] Jeovany Akhtar [id number] Jeovany Akhtar 04/07/2023 2 [facility] Jeovany Akhtar [id number] Jeovany Akhtar Notes Date Note Type [...] ED with good results. Mike Mathews MD [address] [place] [address],[address], [place], [phone], [facility] 08/12/2022 13:24:00 04/07/2023 text/html HPI [...] artery bypass about 1 month ago at [place] and is recovering. He tried Viagra 25 mg once and fainted and is stopped this. He is currently on aspirin and Plavix. Mike Mathews MD [address] [place] [address],[address], [place], [address], [facility] 04/07/2023 15:02:58
--- OUTSIDE RECORDS SUMMARY | 2024-04-17 11:41 | XMS_ITS | Clinical Summary ---
Author Organization [employer] Address [place], [place] [address] Care Team Providers Care Cheese Tester Name Role Phone JavierteDillon carlson MD Primary [...] 4 3 Active Syringe with Needle, Disp, ([employer] Luer Lock Syr-needle) 3 mL 21 gauge [...] Type Department Care Team Description 04/01/2024 Refill [facility] [address] [place] [address] Dillon Romano MD Refill Request (Metoprolol Succinate) [...] Good Health Daughter ADOPTED Heart Disease Father [place] age 50, henry druple bypass 1988 Other [...] Comments Blood Pressure 112/58 06/17/2023 9:53 AM PET CARE ASSISTANT Pulse 70 06/17/2023 9:53 AM PET CARE ASSISTANT Temperature 36.8 ??C (98.3 ??F) 03/17/2023 3:00 PM CD T Respiratory Rate 12 06/17/2023 9:53 AM PET CARE ASSISTANT Oxygen Saturation 97% 06/17/2023 9:53 AM PET CARE ASSISTANT Inhaled Oxygen Concentration - - Weight 81.3 kg (179 lb 3.2 oz) 05/19/2023 10:02 AM PET CARE ASSISTANT Height 175.3 cm (5' 9) 05/19/2023 10:02 AM PET CARE ASSISTANT Body Mass Index 26.46 05/19/2023 10:02 AM PET CARE ASSISTANT Plan of Treatment Health Maintenance Due Date [...] this topic Medical Devices Explanted Type Area Padded Box Sewer Device Identifier Shelf Expiration Date Model / Serial / Lot Cnnla Arterial 22frx3/8in Optisite Blunt Tip - [id number] Explanted:Qty: 1 on 03/07/2023 by Travis España MD at [facility] [email or web address] 02/13/2025 OPTI22 / / Description:THIS IS NOT AN I MPLANT Procedures Procedure Name Priority Date/Time Associated Diagnosis Comments COLONOSCOPY SCREENING Routine 06/17/2023 8:37 AM PET CARE ASSISTANT History of colon polyps LIPID PANEL W REFLEX MEASURED LDL Routine 05/16/2023 7:[address] elevation myocardial infarction involving left anterior descending (LAD) coronary artery (HC) ANTI HCV Routine 11/24/2017 8:50 AM CDT Encounter for hepatitis C screening test for low risk patient from Last 3 Months or Most Recently Relevant to Health Maintenance Results * COLONOSCOPY (06/17/2023 9:09 AM PET CARE ASSISTANT) 06/17/2023 9:09 AM PET CARE ASSISTANT Narrative Transcriptions Lino Armijo MD - 06/17/2023 [...] an adequate candidate for conscious sedation. The [id number] was passed through the anus and advanced [...] 9:09 AM Procedure Code(s): --- Professional --- 25555, Colonoscopy, flexible; with removalof tumor(s), polyp(s), or other lesion(s) bysnare technique Diagnosis Code(s): --- Professional --- Z86.010, Personal history of colonicpolyps D12.5, Benign neoplasm of sigmoid colon CPT copyright 2021 [employer]. All rights reserved. The codes documented in this report are preliminary and upon taxicab driver reviewmay be revised to meet current compliance requirements. Scope In: 9:17:37 AM Scope Withdrawal Time 0 hours 11 minutes 57 seconds Scope Out: 9:35:00 AM Lino Armijo MD PROCEDURE ORD * LIPID PANEL W REFLEX MEASURED LDL (05/16/2023 7:58 AM PET CARE ASSISTANT) CHOLESTEROL,TOTAL 113 100 - 199 mg/dL 05/16/2023 1:27 PM PET CARE ASSISTANT [facility] Comment: Cholesterol, Total Reference Ranges Desirable <200 mg/dL Borderline 200-239 mg/dL High >=240 mg/dL TRIGLYCERIDES 54 <150 mg/dL 05/16/2023 1:27 PM PET CARE ASSISTANT [facility] HDL CHOLESTEROL 44 >40 mg/dL 1:27 PM PET CARE ASSISTANT [facility] NON-HDL CHOLESTEROL 69 <145 mg/dl 05/16/2023 1:27 PM PET CARE ASSISTANT [facility] CHOL/HDL RATIO 2.57 <4.50 05/16/2023 1:27 PM PET CARE ASSISTANT [facility] LDL CHOLESTEROL 58 <=130 mg/dL 05/16/2023 1:27 PM PET CARE ASSISTANT [facility] VLDL CHOLESTEROL 11 <=30 mg/dL 05/16/2023 1:27 PM PET CARE ASSISTANT [facility] PROVIDER ORDERED STATUS RANDOM 05/16/2023 1:27 PM [facility] Blood BLOOD SPECIMEN / Unknown Venipuncture / Unknown 05/16/2023 7:58 AM PET CARE ASSISTANT 05/16/2023 7:59 AM PET CARE ASSISTANT Dillon Romano MD CHEMISTRY [facility] [address] [place] [address], * ANTI HCV (11/24/2017 8:50 AM CDT) HEPATITIS C ANTIBODY Non-React frank Non-React frank 11/24/2017 5:26 PM CDT [facility] Comment:Antibodies to HCV no t detected; does not exclude the possibility of exposure to HCV. Blood BLOOD SPECIMEN / Unknown Venipuncture / Unknown 11/24/2017 8:50 AM CDT 11/24/2017 8:50 AM CDT Dillon Romano MD [facility] [address] [place] [address], from Last 3 Months or Most Recently [...] Preferences, Provider to review later Care Teams Cheese Tester Relationship Specialty Start Date End Date Votel, Dillon Holcomb MD [address] [place] [address] PCP - General Family Practice 12/10/10
[2024-04-17 13:16] VITALS: BP 117/76; PULSE 91
--- NOTE | 2024-04-17 14:11 | W.PM.STED ---
Stress Test Note Date Time Seen by Provider: 14:11 Date Seen: 04/17/24 Date of test: 04/17/24 Providers Primary care provider: Dillon Romano Stress test physician: Eulogio Ceron Stress Test Note Stress test ordered: Stress Myoview Indication for test: chest pain Results discussion: Patient is a very nice gentleman who presents here for the above test, he was seen recently in the emergency room, ruled out, and Cardiology was consulted and they suggested this test, cardiac stress test medical history form is reviewed, he has a history of a previous myocardial infarction, in 2022 and CABG done then also. Informed consent risks benefits side effects discussed in detail he accepts these and he would like to proceed pretest EKG shows normal sinus rhythm, he deep S waves are noted across the precordial leads which may be indicative of previous injury, this is unchanged from previous EKG, his rhythm appears sinus at 55 and his blood pressure is 146 on 88. Standard stress Myoview is done over a time course of 12 minutes 31 seconds, achieved a metabolic of 12.9 Mets. His conditioning was felt to be excellent, in test is terminated because of fulfillment of protocol, he did not have any subjective symptoms of chest pain shortness of breath or any other anginal equivalent symptoms. There was some nondiagnostic ST wave depression primarily in lead 3. But nothing to fulfill criteria as a positive test. There is no dysrhythmias noted. Impression: Negative electrographic portion of stress Myoview, conditioning was felt to be excellent Follow up suggested: Await nuclear images, these will be read by nuclear Medicine and Cardiology, clinical correlation with these be needed, I did speak to his primary care physician to alert him of the test, so he may follow it up.
== END 2024-04-17 10:46 | disposition home or self-care (01) ==
LOC: STRESS 10:45
PROVIDERS: PCP Family Medicine; Visit Provider Family Medicine
DX: I25.709 Atherosclerosis of coronary artery bypass graft(s), unspecified, with unspecified angina pectoris (principal); R07.89 Other chest pain
CPT/HCPCS: 78452; 93016; 93017; A9500